=== PATIENT | male | born 1955 | race Caucasian/White ===

== ENCOUNTER 2017-04-15 20:12 | Emergency (ER) | payer BC, OTHER ==
[2017-04-15] MEDS ORDERED: OXYCODONE-ACETAMINOPHEN 5-325 MG TABLET PO ONE (21:14)
[2017-04-15] MEDS ORDERED: ONDANSETRON 4 MG TAB.RAPDIS PO ONE (21:14)
[2017-04-15] MEDS ORDERED: LIDOCAINE 1%/EPINEPHRINE INJ 20 ML VIAL INJ ONE (21:15)
[2017-04-15] MEDS ORDERED: DIPH/PERTUSS(ACELL)/TETANUS VAC/PF 0.5 ML SYR (>=10YO) IM ONE (21:16)
--- NOTE | 2017-04-15 21:17 | ER Document Report ---
ED Head/Face/Scalp Injury - General Chief Complaint: Laceration Stated Complaint: EYE INJURY Time Seen by Provider: 04/15/17 21:09 Notes: Patient is a 61-year-old male who comes emergency department for chief complaint of injury and laceration to the right side of his face. He states he tripped and hit his face on a sharp jacinda underneath a carr hog that was lying on the ground. He reports heavy bleeding from the area but he denies loss of consciousness, nausea or vomiting, visual changes, focal numbness or weakness. He is not on a blood thinner. His tetanus is not up-to-date. He does not take any daily medications. TRAVEL OUTSIDE OF THE [place] IN LAST 30 DAYS: No - Related Data Allergies/Adverse Reactions: No Known Allergies Allergy (Unverified 04/15/17 22:48) Past Medical History - General Information source: Patient - Social History Smoking Status: Never Smoker Frequency of alcohol use: None Drug Abuse: None Lives with: Family Family History: Reviewed & Not Pertinent Patient has suicidal ideation: No Patient has homicidal ideation: No Renal/ Medical History: Denies: Hx Peritoneal Dialysis Surgical Hx: Negative - Immunizations Immunizations up to date: No Hx Diphtheria, Pertussis, Tetanus Vaccination: Yes Review of Systems - Review of Systems Constitutional: No symptoms reported EENT: No symptoms reported Cardiovascular: No symptoms reported Respiratory: No symptoms reported Gastrointestinal: No symptoms reported Genitourinary: No symptoms reported Male Genitourinary: No symptoms reported Musculoskeletal: See HPI Skin: See HPI Hematologic/Lymphatic: No symptoms reported Neurological/Psychological: No symptoms reported Physical Exam - Vital signs Vitals: Temp Pulse Resp BP Pulse Ox 98.2 F 89 17 149/95 H 99 04/15/17 20:14 04/15/17 20:14 04/15/17 20:14 04/15/17 20:14 04/15/17 20:14 Interpretation: Normal - General General appearance: Alert, Anxious In distress: Moderate - patient trying to hold a bloody towel over bleeding wound in the face - HEENT Head: Other - Laceration extending from the side of the right nostril over to the mid zygomatic area on the right side. Slightly irregular. Heavy bleeding noted from the site. No arterial spurt. No septal hematoma, no involvement of the orbit, no involvement of the eye, no periorbital ecchymosis Eyes: Normal Conjunctiva: Normal Extraocular movements intact: Yes Eyelashes: Normal Pupils: PERRL Mouth/Lips: Normal Pharynx: Normal Neck: Normal - Respiratory Respiratory status: No respiratory distress Chest status: Nontender Breath sounds: Normal Chest palpation: Normal - Cardiovascular Rhythm: Regular Heart sounds: Normal auscultation Murmur: No - Abdominal Inspection: Normal Distension: No distension Bowel sounds: Normal Tenderness: Nontender Organomegaly: No organomegaly - Back Back: Normal, Nontender - Extremities General upper extremity: Normal inspection, Nontender, Normal color, Normal ROM , Normal temperature General lower extremity: Normal inspection, Nontender, Normal color, Normal ROM , Normal temperature, Normal weight bearing. No: Moiz's sign - Neurological Neuro grossly intact: Yes Cognition: Normal Orientation: AAOx4 [place] Coma Scale Eye Opening: Spontaneous [place] Coma Scale Verbal: Oriented Prabhakar Coma Scale Motor: Obeys Commands Prabhakar Coma Scale Total: 15 Speech: Normal Motor strength normal: LUE, RUE, LLE, RLE Sensory: Normal - Psychological Associated symptoms: Anxious - Skin Skin Temperature: Warm Skin Moisture: Dry Skin Color: Normal Course - Re-evaluation Re-evalutation: Large laceration bleeding heavily but this was quickly cleaned, numbed, and sutures were placed. Bleeding stopped easily with sutures. Good closure. CT of the face shows nasal bone fracture with no displacement, fortunately no other fractures noted. No concerning head injury symptoms, normal neurological exam. Patient placed on antibiotics, provided with ENT referral, discussed head injury precautions, he is staying with his brother. Discussed with Dr. Marcano. Patient states satisfaction and agreement with plan. - Vital Signs Vital signs: Temp Pulse Resp BP Pulse Ox 98.7 F 76 16 125/85 95 04/15/17 23:03 04/15/17 23:03 04/15/17 23:03 04/15/17 23:03 04/15/17 23:03 Procedures - Laceration/Wound Repair Right nostril and zygomatic area Wound length (cm): 5 Wound's Depth, Shape: Irregular Laceration pre-procedure: Sterile PPE donned, Sterile drapes applied, Shur- Clens applied - Surgical cleanser Anesthetic type: 1% Lidocaine w/epi Volume Anesthetic (mLs): 6 Wound explored: Clean, No foreign body removed Irrigated w/ Saline (mLs): 40 Wound Repaired With: Sutures Suture Size/Type: 5:0, Nylon Number of Sutures: 14 Layer Closure?: No Post-procedure wound care: Sterile dressing applied Post-procedure NV exam normal: Yes Complications: No Discharge - Discharge Clinical Impression: Facial laceration Qualifiers: Encounter type: initial encounter Qualified Code(s): S01.81XA - Laceration without foreign body of other part of head, initial encounter Facial contusion Qualifiers: Encounter type: initial encounter Qualified Code(s): S00.83XA - Contusion of other part of head, initial encounter Nasal bone fracture Qualifiers: Encounter type: initial encounter Fracture type: open Qualified Code(s): S02.2XXB - Fracture of nasal bones, initial encounter for open fracture Condition: Stable Disposition: HOME, SELF-CARE Additional Instructions: The laceration has been closed but you also have a nasal bone fracture. Please take the antibiotic as prescribed (consider probiotic source such as yogurt or supplement to avoid diarrhea from it), take the pain medication as needed, follow up with the ENT office as referred (call Tuesday). Keep clean, clean with soap and water, dab dry. Return to emergency department for any concerning or worsening symptoms including redness, discolored drainage, fever, or any other concerning symptoms , see head injury precautions listed below. Head Injury Precautions At this point, there is no evidence that your head injury is serious. Observation is necessary, however. Take only clear liquids for the first few hours, unless told otherwise by the doctor. If no pain medication was prescribed, you may take acetaminophen according to the directions on the bottle. Do not take any medication that may alter your level of alertness (unless you've discussed it with the doctor first) . Limit activity for the first 24 hours. Bed rest is best. During the first 24 hours, check to see approximately every two to three hours that the patient is easily arousable, responds normally, and can perform common tasks such as walking without difficulty. Contact your doctor or go to the hospital if any of the following things occur: Persistent vomiting, difficulty in arousing the patient, worsening or continued headache, or failure to improve as expected. Head injuries can cause symptoms that persist for a few days or even a few weeks. Referral: [facility] Address: [address] [place] [address] , [place] [address] Prescriptions: Morphine Sulfate [Morphine Ir 15 Mg Tablet] 15 mg PO Q4HP PRN #15 tablet PRN Reason: Amox Tr/Potassium Clavulanate [Augmentin 875-125 Tablet] 1 tab PO BID 7 Days tablet Referrals: ERIC RAMOS MD [Primary Care Provider] - Follow up as needed
--- NOTE | 2017-04-15 21:43 | RADIOLOGY REPORT (SQ) ---
EXAM DESCRIPTION: CT FACIAL AREA WITHOUT COMPLETED DATE/TIME: 04/15/2017 9:28 pm REASON FOR STUDY: facial injury COMPARISON: None. TECHNIQUE: Noncontrasted images through the facial bones and orbits windowed for bone and soft tissu e. Additional coronal and sagittal reconstructed images reviewed. All images stored on PACS. All CT scanners at this facility use dose modulation, iterative reconstruction, and/or weight based d osing when appropriate to reduce radiation dose to as low as reasonably achievable (ALARA). [facility]: Dose Right [facility]: CareDose [facility]: Dose Right [facility]: Teradose 4D [facility]: [employer] Technologies RADIATION DOSE: Up-to-date CT equipment and radiation dose reduction techniques were employed. CTDIv ol: 30.4 mGy. DLP: 608 mGy-cm. mGy. LIMITATIONS: None. FINDINGS: FACIAL BONES: There is a minimally displaced fracture through the base of the right nasal bone best seen on series 4 images 42-46 and series 200, image 16 no additional acute fracture identif ied. There is rightward deviation of the bony nasal septum with osseous spurring which is likely chr onic. ORBITS: Intact. No fracture. Symmetric intact globes and retroorbital soft tissues. PARANASAL SINUSES: Mild diffuse mucosal thickening without air-fluid levels. Left-sided brittanie bullos a. SOFT TISSUES: Right premaxillary and perinasal soft tissue swelling with subcutaneous emphysema. INFERIOR BRAIN: Limited view. No acute findings. OTHER: No other significant finding. IMPRESSION: RIGHT SIDED NASAL BONE FRACTURE WITH ASSOCIATED SOFT TISSUE INJURY DESCRIBED ABOVE. NO ADDITIONAL FACIAL BONE FRACTURE IDENTIFIED. TECHNICAL DOCUMENTATION: JOB ID: [id number] Quality ID # [id number]: Final reports with documentation of one or more dose reduction techniques (e.g., Au tomated exposure control, adjustment of the mA and/or kV according to patient size, use of iterative reconstruction technique) 2010 [employer]- All Rights Reserved
[2017-04-15] MEDS ORDERED: HYDROCODONE/ACETAMINOPHEN 5-325 MG 6 TAB/DSPK PO PRN (22:39)
[2017-04-15] MEDS ORDERED: AMOXICILLIN TRIHYDRATE 500 MG CAPSULE PO ONE (22:42)
[2017-04-15] MEDS ORDERED: AMOXICILLIN TR/POT CLAVULANATE 500-125 MG TAB PO ONE (22:42)
[2017-04-15 23:06] VITALS: BP 125/85
== END 2017-04-15 23:03 | disposition home or self-care (01) ==
LOC: ER 20:12
PROC: 0HQ1XZZ Repair Face Skin, External Approach (ICD-10-PCS; principal; 2017-04-15)
DX: S02.2XXB Fracture of nasal bones, initial encounter for open fracture (principal); S01.81XA Laceration without foreign body of other part of head, initial encounter; S00.83XA Contusion of other part of head, initial encounter; W22.8XXA Striking against or struck by other objects, initial encounter
CPT/HCPCS: 99283; 90471; 70486; 90715; 12013; S0119; J3490

== ENCOUNTER 2018-05-26 08:33 | Day surgery (SDC) | payer OTHER ==
[~2018-05-26 08:33] MED LIST: ACETAMINOPHEN 1,000 MG/100 ML RTUPB IV ONE; BALANCED SALT IRRIG SOLN COMB2 15 ML BOTTLE ONE; BUPIVACAINE HCL 0.5%/EPI 1:200000 INJ 1.8 ML CARTRIDGE ONE; CEFAZOLIN 2 GM/D5W RTU 2 GM/50 ML RTUPB IV ONE; CEFAZOLIN 2 GM/D5W RTU 2 GM/50 ML RTUPB IV PRN; DEXAMETHASONE SOD PHOSPHATE INJ 4 MG/1 ML VIAL ONE; FENTANYL CITRATE INJ/PF 250 MCG/5 ML AMPULE ONE; LACTATED RINGERS 1000 ML IV PRN; LIDOCAINE 0.5% INJ-PF (5 MG/ML) 50 ML SDV SUBCUT PRN; LIDOCAINE 2% INJ-PF (20 MG/ML) 10 ML AMPUL ONE; MIDAZOLAM 2 MG/2 ML INJ ONE; MINERAL OIL (STERILE) 10 ML VIAL ONE; ONDANSETRON HCL INJ/PF 4 MG/2 ML SDV ONE; OXYMETAZOLINE HCL 0.05% NASAL SPRAY 15 ML BOTTLE ONE; PROPOFOL INJ 200 MG/20 ML VIAL IV ONE
[2018-05-26] MEDS ORDERED: SUGAMMADEX SODIUM 200 MG/2 ML SDV IV ONE (08:47)
[2018-05-26] MEDS ORDERED: PHENYLEPHRINE HCL INJ/PF 10 MG/1 ML SDV ONE (08:53)
[2018-05-26] MEDS ORDERED: ROCURONIUM BROMIDE INJ 50 MG/5 ML VIAL IV ONE (08:53)
[2018-05-26] MEDS ORDERED: SUCCINYLCHOLINE CHLORIDE INJ 200 MG/10 ML VIAL ONE (08:53)
[2018-05-26] MEDS ORDERED: GLYCOPYRROLATE 1 MG/5 ML SYRINGE ONE (08:53)
[2018-05-26 09:46] LABS: HEMATOCRIT 52.1 % (37.9-51.0); HEMOGLOBIN 17.9 g/dL (13.5-17.0); MEAN CORPUSCULAR HEMOGLOBIN 30.9 pg (27.0-33.4); MEAN CORPUSCULAR HGB CONC 34.3 g/dL (32.0-36.0); MEAN CORPUSCULAR VOLUME 90 fl (80-97); PLATELET COUNT 274 10^3/uL (150-450); RED BLOOD COUNT 5.78 10^6/uL (4.35-5.55); WHITE BLOOD COUNT 12.2 10^3/uL (4.0-10.5)
[2018-05-26 09:57] LABS: ANION GAP 10 (5-19); BLOOD UREA NITROGEN 23 mg/dL (7-20); CALCIUM 9.8 mg/dL (8.4-10.2); CARBON DIOXIDE 27 mmol/L (22-30); CHLORIDE 105 mmol/L (98-107); GLUCOSE 105 mg/dL (75-110); POTASSIUM 4.7 mmol/L (3.6-5.0); SODIUM 141.7 mmol/L (137-145)
[2018-05-26] MEDS ORDERED: ALBUTEROL SULFATE 0.083% NEB 2.5 MG/3 ML AMPUL NEB ONE (10:13)
[2018-05-26] MEDS ORDERED: TOBRAMYCIN SULFATE/DEXAMETH OPH SUSP 2.5 ML ONE (10:31)
[2018-05-26] MEDS ORDERED: TOBRAMYCIN SULFATE/DEXAMETH OPH OINTMENT 3.5 GM ONE (10:31)
--- NOTE | 2018-05-26 10:38 | EKG REPORT ---
SEVERITY:- NORMAL ECG - SINUS RHYTHM : Confirmed by: Nancy Cortez 26-May-2018 10:37:09
[2018-05-26] MEDS ORDERED: BUPIVACAINE HCL 0.5%-EPI 1:200000 INJ/PF 30 ML VIAL ONE (11:12)
[2018-05-26] MEDS ORDERED: FENTANYL CITRATE INJ/PF 100 MCG/2 ML AMPUL IV PRN ×6 (12:59→14:28)
[2018-05-26] MEDS ORDERED: MEPERIDINE HCL/PF INJ 25 MG/1 ML DISP.SYRIN IV PRN ×2 (12:59→14:28)
[2018-05-26] MEDS ORDERED: MORPHINE SULFATE 10 MG/ML INJ IV PRN ×3 (12:59→15:51)
[2018-05-26] MEDS ORDERED: ONDANSETRON HCL INJ/PF 4 MG/2 ML SDV IV PRN ×3 (12:59→15:51)
[2018-05-26] MEDS ORDERED: DIPHENHYDRAMINE HCL 50 MG/ML VIAL IV PRN ×2 (12:59→14:28)
[2018-05-26] MEDS ORDERED: PROMETHAZINE HCL INJ 25 MG/1 ML VIAL IV PRN ×5 (12:59→15:51)
[2018-05-26] MEDS ORDERED: BACITRACIN ZINC OINTMENT 15 GM ONE (13:37)
[2018-05-26] MEDS ORDERED: RINGERS SOLUTION,LACTATED 1,000 ML IV PRN (15:51)
[2018-05-26] MEDS ORDERED: OXYCODONE-ACETAMINOPHEN 5-325 MG TABLET PO PRN (15:51)
[2018-05-26] MEDS ORDERED: OXYCODONE-ACETAMINOPHEN 5-325 MG TABLET ONE (17:42)
[2018-05-26 20:09] VITALS: BP 121/83
--- NOTE | 2018-05-30 10:31 | OPERATIVE REPORT E ---
Operative Report NAME: BAHMAN BNAERJEE : 1955 AGE: 62Y DATE OF SURGERY: 05/26/2018 ROOM: PREOPERATIVE DIAGNOSES: 1. Nasal deformities, acquired. 2. Nasal septal deviation, acquired. 3. Bilateral inferior turbinate hypertrophy. 4. Chronic eustachian tube dysfunction. 5. History of severe nasal/facial trauma. 6. Left brittanie bullosa. POSTOPERATIVE DIAGNOSES: 1. Nasal deformities, acquired. 2. Nasal septal deviation, acquired. 3. Bilateral inferior turbinate hypertrophy. 4. Chronic eustachian tube dysfunction. 5. History of severe nasal/facial trauma. 6. Left brittanie bullosa. OPERATION PERFORMED: 1. Reconstructive septorhinoplasty involving the upper and lower cartilages with tip elevation and stabilization and with extensive cartilage grafting. 2. Bilateral inferior turbinate reduction using a submucous resection technique. 3. Bilateral eustachian tube balloon plasty via bilateral transnasal rigid surgical endoscopy. 4. Left brittanie bullosa resection of the lateral aspect via transnasal rigid surgical endoscopy. SURGEON: KEEGAN GONG D.O. ANESTHESIA: General endotracheal tube. [facility]HESIA [facility] COMPLICATIONS: None. DRAINS: None. SPONGE COUNT: Verified. NEEDLE COUNT: Verified. MATERIALS FORWARDED SPECIMEN: Left and right middle turbinate tissue sent as biopsies for permanent pathology evaluation for rule out polyp disease/neoplasm. ESTIMATED BLOOD LOSS: 50 mL. FLUIDS: 2900 mL of IV fluids. URINE OUTPUT: 300 mL. FINDINGS: 1. Nasal septal deviation involving bone and cartilage. 2. Severe right nasal valve collapse with extensive skin and soft tissue scar cicatrix. 3. Bilateral anterior turbinate hypertrophy. 4. The munira were noted to be flattened/compressed. 5. The middle turbinates were noted to be discolored and inflamed with polypoid-type changes. 6. Large left brittanie bullosa. 7. Otherwise, there were no other sinonasal polyps or polypoid changes or discharge noted. 8. Large septal spur. INDICATIONS: This is a 62-year-old white male patient who was seen and evaluated in the [facility] office. The patient had been referred for nasal surgery consultation from a local plastic surgeon. The patient had previously suffered severe nasal and right facial trauma after he fell upon a metal object with grease on it, striking his nose and right face. The patient was initially cared for by a local plastic surgeon with wound management and a series of Kenalog injections for the scar tissue component. The patient subsequently remained with significant skin and soft tissue deformities, scar cicatrix, and severe nasal dysfunction. There was CT facial/sinus imaging which was obtained and was reviewed with the patient. Clinic flexible endoscopy was performed as well and reviewed with the patient with concern for the appearance of the middle turbinates, especially on the left, with recommendation for intraoperative biopsies. After extensive discussion with the patient with recommendation and plan for reconstructive septorhinoplasty, middle turbinate biopsies, bilateral inferior turbinate reductions, eustachian tube balloon plasty for the patient's history of chronic eustachian tube dysfunction and allergies, and possible need of irradiated costal cartilage graft, the patient voiced an understanding of all that was discussed, was in agreement, agreed to proceed, and consent was obtained. PROCEDURE: The patient was taken to the main operating room and was placed on the operating room table in the supine position. Appropriate monitors were placed. Using mask and IV access, general anesthesia was induced. The patient was transorally intubated without difficulty. The patient was then positioned and prepped for nasal, turbinate, and eustachian tube surgery. The patient underwent a nasal examination with injection of local anesthetic with epinephrine to establish a nasal block. Two Afrin-soaked neuro patties per nasal passage. The patient was then prepped and draped in the usual fashion for nasal surgery. The Afrin-soaked neuro patties were removed. At this point bilateral transnasal rigid surgical endoscopy was utilized to introduce the eustachian tube balloon plasty components. Each eustachian tube complex had the balloon introduced and it was inflated and held in place for 2 minutes. This was repeated on each side. Once complete the system was withdrawn. At this point the patient underwent a hemitransfixion incision with elevation of the mucoperichondrial and mucoperiosteal flaps. The bony cartilaginous junction was identified and divided, and the most deviated portions of septal cartilage and bone were removed. There was a greater than 1.5 x 1.5 cm cartilaginous L strut that was preserved. The cartilaginous component was also released from the maxillary crest. There was a large septal spur that was also removed with a V gauge. At this point the turbinate bipolar wand was used to make 2 passes in each inferior turbinate. The anterior aspect of each inferior turbinate was opened with a pair of Christos scissors and a Raleigh elevator was used to elevate tissues in a submucosal plane. The turbinate microdebrider system at a setting of 1500 rpm was used to perform bilateral submucous resection. The Raleigh elevator was used to outfracture each inferior turbinate. The redundant/excessive mucosal margins were trimmed and then reapproximated with chromic suture. At this point the rigid endoscope was utilized to perform bilateral middle turbinate biopsies. The left brittanie bullosa was opened and the lateral aspect was resected under direct visualization via endoscopy. At this point the rhinoplasty portion of the case was completed in the following manner. There was a modified marginal incision performed on the right with gentle dissection to create a large precise pocket out through the lateral nasal sidewall distribution. There was also elevation of tissues over the nasal dorsum and rasp work was performed to address the nasal deformities. Once complete a large nasal valve graft was fashioned from cartilage harvested from the nasal septum. This was set in place and then fixed in position with cotton bolsters overlying the internal and external nasal tissues with 5-0 Prolene stabilizing them in place. Once complete there was a right alar rim graft that was fashioned and set in place. Once complete all incisions were reapproximated with chromic suture after the nose had been thoroughly irrigated and suctioned. There was adequate hemostasis noted. At this point 1 Zheng silicone nasal splint with Bacitracin ointment was placed per nasal passage and these were secured at the caudal aspect with 4-0 Prolene suture. The nose was next cleaned and dried followed by placement of Mastisol and Steri-Strips. The patient was then returned to the anesthesia staff and was allowed to emerge from general anesthesia. The patient was extubated in the main operating room and was then transported to the postanesthesia recovery unit in stable condition. There were no complications. DICTATING PHYSICIAN: KEEGAN GONG D.O. [id number] PHY#: [id number] ID: [id number] JOB#: [id number] ACCT: [id number] cc:KEEGAN GONG D.O. >
== END 2018-05-26 19:25 | disposition home or self-care (01) ==
LOC: OROUT 08:33
PROVIDERS: ATTEND Otolaryngology
DX: J34.2 Deviated nasal septum (principal); M95.0 Acquired deformity of nose; J34.3 Hypertrophy of nasal turbinates; J34.89 Other specified disorders of nose and nasal sinuses; H69.83 Other specified disorders of Eustachian tube, bilateral; R06.09 Other forms of dyspnea; S09.92XS Unspecified injury of nose, sequela; X58.XXXS Exposure to other specified factors, sequela
CPT/HCPCS: 36415; 85027; 80048; 88305 ×2; 93005; 93010; 30420; 30140; 31240; 69436; J2250; J3490 ×9; J1100; J3010; J2370; J0330; J2405; J2704; J0690; J0131; 160

== ENCOUNTER 2019-12-13 10:08 | Day surgery (SDC) | payer MEDICARE ==
[~2019-12-13 10:08] MED LIST changes: -ACETAMINOPHEN 1,000 MG/100 ML RTUPB IV ONE; -BALANCED SALT IRRIG SOLN COMB2 15 ML BOTTLE ONE; -BUPIVACAINE HCL 0.5%/EPI 1:200000 INJ 1.8 ML CARTRIDGE ONE; -CEFAZOLIN 2 GM/D5W RTU 2 GM/50 ML RTUPB IV ONE; -CEFAZOLIN 2 GM/D5W RTU 2 GM/50 ML RTUPB IV PRN; -DEXAMETHASONE SOD PHOSPHATE INJ 4 MG/1 ML VIAL ONE; -FENTANYL CITRATE INJ/PF 250 MCG/5 ML AMPULE ONE; +KETOROLAC TROMETHAMINE 0.45% 4 DROP/0.4 ML DROPERETTE OD PRN; -LACTATED RINGERS 1000 ML IV PRN; -LIDOCAINE 0.5% INJ-PF (5 MG/ML) 50 ML SDV SUBCUT PRN; -LIDOCAINE 2% INJ-PF (20 MG/ML) 10 ML AMPUL ONE; -MIDAZOLAM 2 MG/2 ML INJ ONE; -MINERAL OIL (STERILE) 10 ML VIAL ONE; -ONDANSETRON HCL INJ/PF 4 MG/2 ML SDV ONE; -OXYMETAZOLINE HCL 0.05% NASAL SPRAY 15 ML BOTTLE ONE; -PROPOFOL INJ 200 MG/20 ML VIAL IV ONE
[2019-12-13] MEDS: BESIFLOXACIN HCL 0.6% OPH SUSP 5 ML BOTTLE OD PRN ×4 (10:21→11:12)
[2019-12-13] MEDS: TETRACAINE HCL 0.5% OPH SOLN 4 ML OD PRN ×3 (10:21→10:48)
[2019-12-13] MEDS: TROPICAMIDE 1% OPH SOLN 15 ML OD PRN ×3 (10:21→10:45)
[2019-12-13] MEDS: CYCLOPENTOLATE 0.2%/PHENYLEPHRINE 1% OPH SOLN 2 ML OD PRN ×3 (10:21→10:45)
[2019-12-13] MEDS ORDERED: MIDAZOLAM 2 MG/2 ML INJ ONE (10:28)
[2019-12-13] MEDS: EPINEPHRINE INJ/PF 1 MG/1 ML AMPULE ONE ×2 (10:57)
[2019-12-13] MEDS: CHONDR SU A NA/HYALUR INTRAOC KIT (SURGICARE) ONE ×2 (10:57)
[2019-12-13] MEDS: LIDOCAINE 1%/PHENYLEPHRINE 1.5% 1 ML VIAL ONE ×2 (10:57)
[2019-12-13] MEDS: DORZOLAMIDE HCL 2%/TIMOLOL MALEAT 0.5% OPH SOLN 10 ML OD PRN ×2 (11:12)
--- NOTE | 2019-12-13 11:44 | Operative Report ---
Operative Report-[facility] Operative Report: DATE OF SURGERY: 12/13/19 PREOPERATIVE DIAGNOSIS: Cataract, right eye POSTOPERATIVE DIAGNOSIS: Cataract, right eye OPERATION: Cataract extraction with insertion of an IOL of the right eye. Intraocular Lens Model: [19.5 [id number]] Underwent surgery for difficulty driving at night SURGEON: Sha Dela Cruz MD ANESTHESIA: Topical PROCEDURE: After obtaining appropriate consent, the patient's right eye was prepped and draped in a sterile fashion as well as the surgeon in the sterile manner and cataract surgery was started. First a paracentesis blade was used to make a side-port incision. Viscoelastic was used to inflate the anterior chamber. Next a 2.4 mm incision was made with a 2.4 mm blade, clear corneal temporarily. A continuous capsulorrhexis was made using a cystotome and Utrata forceps. Following this hydrodissection was carried out to make the lisandro fully loose and mobile and it was rotated. Following this, a divide and conquer technique was used to phacoemulsify the lisandro. The remaining cortex was removed with an irrigation/aspiration. Provisc was instilled into the capsular bag to inflate the bag. The intraocular lens was placed. The remaining viscoelastic material was removed with irrigation/aspiration. Following this, the incision was found to be watertight. Besivance and Cosopt was instilled into the eye and a protective shield was placed over the eye. The patient was reurned to the postoperative recovery in a stable condition.
== END 2019-12-13 11:45 | disposition home or self-care (01) ==
LOC: SC 10:08
PROVIDERS: ATTEND Internal Medicine
DX: H25.13 Age-related nuclear cataract, bilateral (principal); H04.123 Dry eye syndrome of bilateral lacrimal glands; Z87.891 Personal history of nicotine dependence; Z79.899 Other long term (current) drug therapy; K21.9 Gastro-esophageal reflux disease without esophagitis
CPT/HCPCS: 66984; J2250; J3490 ×2; A9270; J0171

== ENCOUNTER 2020-01-03 10:24 | Day surgery (SDC) | payer MEDICARE ==
[~2020-01-03 10:24] MED LIST changes: +CHONDR SU A NA/HYALUR INTRAOC KIT (SURGICARE) ONE; +DORZOLAMIDE HCL 2%/TIMOLOL MALEAT 0.5% OPH SOLN 10 ML OS PRN; +EPINEPHRINE INJ/PF 1 MG/1 ML AMPULE ONE; -KETOROLAC TROMETHAMINE 0.45% 4 DROP/0.4 ML DROPERETTE OD PRN; +KETOROLAC TROMETHAMINE 0.45% 4 DROP/0.4 ML DROPERETTE OS PRN; +LIDOCAINE 1%/PHENYLEPHRINE 1.5% 1 ML VIAL ONE
[2020-01-03] MEDS ORDERED: MIDAZOLAM 2 MG/2 ML INJ ONE (10:48)
[2020-01-03] MEDS ORDERED: ONDANSETRON HCL INJ/PF 4 MG/2 ML SDV ONE (10:48)
[2020-01-03] MEDS ORDERED: FENTANYL CITRATE INJ/PF 100 MCG/2 ML AMPUL ONE (10:49)
[2020-01-03] MEDS: TETRACAINE HCL 0.5% OPH SOLN 4 ML OS PRN ×3 (11:13→11:53)
[2020-01-03] MEDS: TROPICAMIDE 1% OPH SOLN 15 ML OS PRN ×3 (11:13→11:37)
[2020-01-03] MEDS: CYCLOPENTOLATE 0.2%/PHENYLEPHRINE 1% OPH SOLN 2 ML OS PRN ×3 (11:13→11:36)
[2020-01-03] MEDS: BESIFLOXACIN HCL 0.6% OPH SUSP 5 ML BOTTLE OS PRN ×4 (11:13→12:07)
--- NOTE | 2020-01-03 13:18 | Operative Report ---
Operative Report-[facility] Operative Report: DATE OF SURGERY: 01/03/20 PREOPERATIVE DIAGNOSIS: Cataracts, left eye POSTOPERATIVE DIAGNOSIS: Cataract, left eye OPERATION: Cataract extraction with insertion of an symphony toric IOL of the left eye. Intraocular Lens Model: [19.0 [id number] rotated to 177 degrees] Patient has an imbalance feeling between both eyes SURGEON: Sha Dela Cruz MD ANESTHESIA: Topical PROCEDURE: After obtaining appropriate consent, the patient's left eye was prepped and draped in a sterile fashion as well as the surgeon in the sterile manner and cataract surgery was started. First a paracentesis blade was used to make a side-port incision. Viscoelastic was used to inflate the anterior chamber. Next a 2.4 mm incision was made with a 2.4 mm blade, clear corneal temporarily. A continuous capsulorrhexis was made using a cystotome and Utrata forceps. Following this hydrodissection was carried out to make the lens fully loose and mobile and it was rotated 90 degrees. Following this, a divide and conquer technique was used to phacoemulsify the lens. The remaining cortex was removed with an irrigation/aspiration. Provisc was instilled into the capsular bag to inflate the bag.The intraocular lens was placed. The remaining viscoelastic material was removed with irrigation/aspiration. Following this, the incision was found to be watertight. Besivance and Cosopt was instilled into the eye and a protective shield was placed over the eye. The patient was returned to the postoperative recovery in a stable condition.
== END 2020-01-03 12:40 | disposition home or self-care (01) ==
LOC: SC 10:24
PROVIDERS: ATTEND Internal Medicine
DX: H25.12 Age-related nuclear cataract, left eye (principal); Z96.1 Presence of intraocular lens; F17.210 Nicotine dependence, cigarettes, uncomplicated
CPT/HCPCS: 66984; J2250; J3490 ×2; A9270; J0171; J3010; J2405; 142; V2788